=== PATIENT | male | born 1970 | race Caucasian/White ===

== ENCOUNTER 2018-07-15 09:37 | Day surgery (SDC) | payer OTHER ==
[2018-07-03 15:07] VITALS: BMI 32.3
[2018-07-15] MEDS ORDERED: PROPOFOL 20 ML ONE ×3 (09:55→10:36)
[2018-07-15] MEDS ORDERED: LIDOCAINE HCL 2% (20ML MULTI-DOSE VIAL) NR ONE (10:27)
[2018-07-15 11:55] VITALS: BP 124/71; PULSE 72; TEMP 98
--- NOTE | 2018-07-15 12:36 | OP ---
DATE OF OPERATION: 07/15/2018 PREOPERATIVE DIAGNOSIS: Left long trigger-finger. POSTOPERATIVE DIAGNOSIS: Left long trigger-finger. OPERATIVE PROCEDURE: Left long trigger-finger release. SURGEON: Regan Gracia MD ANESTHESIA: Local with sedation. COMPLICATIONS: None. ESTIMATED BLOOD LOSS: Minimal. INDICATIONS FOR PROCEDURE: The patient is a 47-year-old male with the above findings. He was indicated for operative treatment. The risks, benefits, and alternatives were discussed with the patient at length. Proper informed consent was obtained. DESCRIPTION OF PROCEDURE: After proper identification of the patient and the correct operative site, the patient was brought to the operating room and placed supine on the operating room table. All bony prominences were well padded. Sedation was given by the anesthesiologist. Local anesthesia was given with 2% lidocaine. Left upper extremity was prepped and draped in the usual sterile fashion. A well-padded tourniquet was placed with a sterile prep. Esmarch bandage used to exsanguinate the left upper extremity. The tourniquet was inflated to 250 mmHg. A longitudinal incision was made over the A1 faith to the long finger. Incision was taken sharply through the skin with blunt and sharp dissection through subcutaneous tissues. A1 faith was identified and divided longitudinally. Patient was asked to flex and extend the finger, and no further triggering was noted. Wound was irrigated and repaired with a 5-0 nylon suture. Sterile dressings were applied. Patient was brought to the recovery room in stable condition. He tolerated the procedure well. REGAN GRACIA M.D. [id number]
== END 2018-07-15 12:00 | disposition home or self-care (01) ==
LOC: FASU 09:37
PROVIDERS: ATTEND Orthopaedic Surgery Hand Surgery
PROC: 0LN80ZZ Release Left Hand Tendon, Open Approach (ICD-10-PCS; principal; 2018-07-15 10:41)
DX: M65.332 Trigger finger, left middle finger (principal)